=== PATIENT | female | born 1995 | race Caucasian/White ===

== ENCOUNTER 2022-09-29 08:03 | Emergency (ER) | payer OTHER, SELFPAY ==
--- NOTE | 2022-09-29 08:05 | ED.ABDPAIN ---
HPI - Abdominal Pain General Chief Complaint: Abdominal Pain Stated Complaint: ABD PAIN Time Seen by Provider: 09/29/22 08:05 Source: patient and RN notes reviewed History of Present Illness HPI narrative: Patient is a 18-year-old female who presents to urgent care with complaints of abdominal discomfort since Wednesday. Patient states that she was unable to sleep last night due to the dull pain. Patient states that 2 days ago she obtain [id number] [facility] UTI kit which stated that she does have a urinary tract infection. Patient states that she has been taking azo and has helped with the burning after urination. Reports of intermittent nausea but denies vomiting. Patient is not taking anything [id number] for her abdominal discomfort. Denies any known fevers. States that she has not had any abdominal issues in the past. Patient is tearful but otherwise no acute distress noted. Patient does states that there is a possibility of . No other acute complaints. No acute distress noted. Patient aware of the plan of care. Some parts of this dictation were generated by voice recognition software and may contain typographical and/or grammatical inaccuracies. Related Data Allergies Allergy/AdvReac Type Severity Reaction Status Date / Time SEASONAL ALLERGIES Allergy Uncoded 08/14/12 13:10 Review of Systems Review of Systems: CONSTITUTIONAL: Denies fever, chills, or sweats. EYES: Denies visual changes, redness, or discharge. ENT: Denies rhinorrhea, congestion, sore throat, or otalgia. CARDIOVASCULAR: Denies chest pain, palpitations, or edema. RESPIRATORY: Denies cough or dyspnea. GASTROINTESTINAL: Reports of a dull abdominal pain with intermittent nausea GENITOURINARY: Reports of slight dysuria and urgency SKIN: Denies rash or itching. MUSCULOSKELETAL: Denies back pain, joint pain, or myalgia. NEUROLOGIC: Denies headache, numbness, or weakness. All other systems reviewed are negative, except as documented in HPI. PMFSH Comments At the time of my signature, I reviewed and agree with the nursing past medical, surgical, social, and family history. There is no relevant family history pertinent to the patient complaint. Exam Narrative: GENERAL: This is a well-nourished, well-developed patient, in no apparent distress. HEAD: normocephalic, atraumatic. EYES: PERRL. Sclera clear/white. Vision is grossly intact. EARS: External ears normal NOSE: External nose normal with no obvious nasal discharge, nares without redness, no rhinorrhea. THROAT: Mucous membranes moist NECK: Neck supple CARDIOVASCULAR: Regular rate and rhythm without murmurs, gallops, or rubs. RESPIRATORY: Clear to auscultation. Breath sounds equal bilaterally. No wheezes, rales, or rhonchi. GASTROINTESTINAL: Abdomen soft, mild tenderness to the suprapubic/umbilicus region, nondistended. Bowel sounds are hypoactive. No guarding. SKIN: warm, intact with no suspicious lesions or rash, good texture and turgor. NEURO: awake, alert, and oriented to person, place and time. There were no obvious focal neurologic abnormalities. EXTREMITIES: No clubbing, cyanosis, or edema. BACK: Negative CVA tenderness Course Course Level of Care: Express Care Visit Vital Signs Vital signs: Vital Signs Temperature 98.3 F 09/29/22 08:10 Pulse Rate 90 09/29/22 08:10 Respiratory Rate 16 09/29/22 08:10 Blood Pressure 120/85 09/29/22 08:10 Pulse Oximetry 100 09/29/22 08:10 Oxygen Delivery Room Air 09/29/22 08:10 Temperature 98.3 F 09/29/22 08:10 Pulse Rate 90 09/29/22 08:10 Respiratory Rate 16 09/29/22 08:10 Blood Pressure 120/85 09/29/22 08:10 Pulse Oximetry 100 09/29/22 08:10 Oxygen Delivery Room Air 09/29/22 08:10 Reviewed MDM - Abdominal Pain MDM Narrative Medical decision making narrative: Reviewed lab results with the patient. She is aware that urinalysis is likely indicative for UTI based on symptoms, slight bl
[2022-09-29 08:10] VITALS: BP 120/85; PULSE 90; RESP 16; TEMP 36.8; O2SAT 100
== END 2022-09-29 08:55 | disposition home or self-care (01) ==
PROVIDERS: Emergency Provider Nurse Practitioner Family; PCP Physician Assistant
DX: N39.0 Urinary tract infection, site not specified (principal); R11.0 Nausea
CPT/HCPCS: 81003; 81025; 87077; 87086; 87088; 99203; G0463

== ENCOUNTER 2024-05-17 11:45 | Outpatient (CLI) | payer BC, SELFPAY ==
--- NOTE | ~2024-05-17 | US_ITS ---
EXAMINATION: US thyroid DATE: 05/17/2024 12:14 INDICATION: Hyperthyroidism TECHNIQUE: Multiple ultrasound images of the thyroid were obtained. COMPARISON: None. FINDINGS: The right thyroid lobe measures 5.5 x 2.4 x 2.4 cm. The left thyroid lobe measures 5.4 x 2.9 x 2.3 c m. Thyroid isthmus measures 5-6 mm in thickness. No discrete nodules identified. There is diffuse het erogeneous decreased echogenicity with coarsened echotexture and diffuse increased vascular flow on c olor Doppler suggestive of thyroiditis. IMPRESSION: 1. Enlarged heterogeneously hypoechoic thyroid with increased vascular flow on color Doppler suggesti ve of thyroiditis. Reviewed, dictated and finalized at location B. IMPRESSION: 1. Enlarged heterogeneously hypoechoic thyroid with increased vascular flow on color Doppler suggestive of thyroiditis.
== END 2024-05-17 11:46 ==
PROVIDERS: PCP Internal Medicine Endocrinology, Diabetes & Metabolism; Visit Provider Physician Assistant
DX: E05.90 Thyrotoxicosis, unspecified without thyrotoxic crisis or storm (principal)
CPT/HCPCS: 76536